=== PATIENT | female | born 1965 | race Caucasian/White ===

== ENCOUNTER 2018-06-11 05:51 | Day surgery (SDC) | payer OTHER, SELFPAY ==
[2018-06-11] VITALS (9 sets, daily range): BP systolic 103–133; BP diastolic 63–73; PULSE 53–69; RESP 16–18; TEMP 36.3–36.8; O2SAT 94–100; BMI 26.8
[2018-06-11] MEDS: Cefazolin 2 GM in 0.9% Normal Saline 100 ML IV (07:30)
--- NOTE | 2018-06-11 07:30 | RAD_ITS ---
STUDY: Fluoroscopy guidance and fluoroscopic spot image for pain management: REASON FOR EXAM: Female, 52 years old. Interstimulation therapy. TECHNIQUE: Fluoroscopy and fluoroscopic spot imaging obtained under direction, supervision and review of the position. Fluoroscopy time: 3.4 seconds. Dose: 0.63 mGy COMPARISON: None available. FINDINGS: Imaging partial view left pelvis shows a neurostimulator wire with inferior electrodes projecting over the left paracentral sacrum. Radiologist not present intraoperatively. Please see intraoperative report for details. IMPRESSION: Please see intraoperative report for details. Electronically Signed: Bryan Mattson, at 11:38 EDT Tel , Service support , RAD/Abdomen Single View
--- NOTE | 2018-06-11 08:04 | DCINST_ITS ---
Discharge Diet: Light diet - advance as tolerated Discharge Activity: Return to Normal Activity Suture Line Care: Avoid Pulling/Pushing, Avoid Pinching/Bending Allergies/Adverse Reactions: Allergies acetaminophen [From Vicodin] Adverse Reaction (Verified 06/04/18 09:59) Nausea azithromycin [From Zithromax Z-Mk] Adverse Reaction (Verified 06/04/18 09:59) Nausea hydrocodone bitartrate [From Vicodin] Adverse Reaction (Verified 06/04/18 09:59) Nausea Medications to take at Discharge Amlodipine [Norvasc] 5 mg PO DAILY 03/06/15 Losartan Potassium [Cozaar] 100 mg PO DAILY 03/06/15 Cholecalciferol (Vitamin D3) [Vitamin D3] 4,000 unit PO DAILY 06/04/18 Oxybutynin Chloride [Ditropan Xl] 5 mg PO DAILY 06/04/18 Cephalexin [Keflex] 500 mg PO Q8 #12 cap 06/11/18 Hydrocodone/Acetaminophen [Hurley 5-325 Tablet] 1 ea PO Q6H PRN PRN 5 Days #10 tab 06/11/18 The following prescriptions were given: Hydrocodone/Acetaminophen [Hurley 5-325 Tablet] 1 ea PO Q6H PRN PRN 5 Days #10 tab PRN Reason: Pain Cephalexin [Keflex] 500 mg PO Q8 #12 cap Primary Care Physician: Altaf Cardenas [Primary Care Provider] - Test Results: Test results from this visit will be discussed in further detail at your follow- up appointment, if applicable. Please Follow Up With: Rayo Ontiveros MD When: in 2 weeks, please call to make an appointment.
--- NOTE | 2018-06-11 08:04 | PCM.OPRPT ---
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 However this time the battery on the generator implant is wearing down and the fact that the implant is not as good so we plan to change her generator battery today. 52-year-old female was taken back to the operating room after smooth induction of anesthesia she was placed face down in a prone position, we came in with fluoroscopy and checked the lead and the lead appeared in good position she was also still getting good stimulation responses. Once we position the patient face down in the proper position on the table then the patient's right lower back and right gluteal area where the implant was located was prepped and draped in usual sterile fashion, through the prior incision I infiltrated the incision with lidocaine, I then made an incision in the skin and then used pickups and Metzenbaums to dissect down to the generator once I got to the generator open up the capsule around the generator and made sure not to injure the lead or the generator itself, no Bovie electrocautery was used. I then delivered the generator out of the incision used the screw provided in the kit and loosen the screw and remove the old generator off the lead I then cleaned the lead to make sure there was no blood or contamination and lead nature of the leads and was good, check lead and everything appeared intact and then I got the new generator advanced into the lead until all the blue markings are showing and then I tightened down on the bolt using the screw provided and after 2 clicks the lead was secured. Patient has had it was first taken back to the PACU in good condition I will see her back in a few weeks for checkup. We then checked the lead with the Snow[employer] rep and the impedances were low and appear to be functioning. Type of Anesthesia:: Local MAC - Admit VTE Documentation VTE Present on Admission: No VTE Mechan Device Prophylaxis: SCD's VTE Pharm Prophylaxis ordered?: No Reason prophylaxis not ordered:: Treatment Not Indicated
[2018-06-11] MEDS: Ondansetron ODT 4 MG Tablet PO ×2 (10:06→10:27)
== END 2018-06-11 11:25 | disposition home or self-care (01) ==
LOC: SDC 05:53
PROVIDERS: Family Provider Family Medicine; PCP Family Medicine; Visit Provider Urology
PROC: (CPT 64590; principal; 2018-06-11 07:15)
DX: N32.81 Overactive bladder (principal); N39.41 Urge incontinence; R35.0 Frequency of micturition; I10 Essential (primary) hypertension
CPT/HCPCS: 64590; 74018; 76000; J7120; C1767

== ENCOUNTER → 2018-08-19 18:33 | Outpatient (CLI) | payer OTHER, SELFPAY ==
--- NOTE | 2018-08-19 18:42 | RAD_ITS ---
STUDY: X-RAY - CERVICAL SPINE REASON FOR EXAM: Female, 52 years old. Pain TECHNIQUE: Three view(s) of the cervical spine were obtained. COMPARISON: None FINDINGS: Normal anterior atlantoaxial articulation. Normal odontoid process. Normal cervical lordosis. No significant abnormalities are seen in the vertebral bodies. There is fusion of the disc at C3-4. There is moderate disc space narrowing at C5-6 and C6-7. There is no prevertebral soft tissue swelling. The lung apices are unremarkable. RAD/Cerv Spine 2 or 3 Views IMPRESSION: There are moderate degenerative disc changes at C5-6 and C6-7. There is fusion of the disc at C3-4, likely congenital. Electronically Signed: Shannan Ospina MD at 18:32 EDT Tel Direct: [phone], Service support ,
== END ==
PROVIDERS: Family Provider Family Medicine; PCP Family Medicine; Visit Provider Anesthesiology Pain Medicine
DX: M54.2 Cervicalgia (principal)
CPT/HCPCS: 72040

== ENCOUNTER 2022-01-31 08:19 | Outpatient (CLI) | payer OTHER, SELFPAY ==
--- NOTE | 2022-01-31 08:24 | RAD_ITS ---
STUDY: X-RAY - ESOPHAGUS (BARIUM SWALLOW) WITH FLUOROSCOPY REASON FOR EXAM: Female, 56 years old. DYSPHAGIA for solids. History of prior esophageal dilatation. TECHNIQUE: 15 view(s) of the esophagus were obtained following swallowing of barium. FLUOROSCOPY TIME (if supplied): (39 seconds) minutes/seconds COMPARISON: None. FINDINGS: There is no demonstrated esophageal foreign body. There is no demonstrated stricture or mucosal abnormality. Normal gastroesophageal junction, without a demonstrated hiatal hernia. The patient ingested a 12 mm tablet of barium without any difficulty. Normal visualized aortic arch and descending thoracic aorta. Normal visualized pulmonary parenchyma. Normal visualized osseous structures of the thorax. RAD/Esophagus Dual Contrast IMPRESSION: Normal plain film x-ray examination (barium swallow) of the esophagus. Electronically Signed: Declan Jaeger MD at 8:44 EDT ,
== END 2022-01-31 23:59 | disposition home or self-care (01) ==
PROVIDERS: PCP Family Medicine; Referring Provider Internal Medicine Gastroenterology; Visit Provider Internal Medicine Gastroenterology
DX: R13.10 Dysphagia, unspecified (principal)
CPT/HCPCS: 74221

== ENCOUNTER → 2022-11-18 | Outpatient (CLI) | payer OTHER, SELFPAY ==
--- NOTE | 2022-11-18 16:03 | RAD_ITS ---
EXAM: XR ABDOMEN, 1 VIEW CLINICAL INDICATION: URGENCY OF URINATION TECHNIQUE: Frontal supine view of the abdomen/pelvis. This report was created using i[employer] report generation technology. COMPARISON: None. FINDINGS: LOWER THORAX: No acute pathology. GASTROINTESTINAL TRACT: Unremarkable. Non-obstructive. No bowel or stomach distention. ORGANS: Unremarkable as visualized. No organomegaly. No abnormal calcifications. BONES/JOINTS: No acute pathology. SOFT TISSUES: No acute pathology. TUBES, LINES AND DEVICES: There is a battery pack overlying the left iliac wing with a lead extending over the right sacrum. RAD/Abdomen Single View IMPRESSION: No acute findings. Electronically Signed: David Gastelum MD at 16:42 EST ,
== END | disposition home or self-care (01) ==
LOC: LAB 15:49 → RAD 15:54
PROVIDERS: PCP Family Medicine; Visit Provider Urology
DX: R39.15 Urgency of urination (principal)
CPT/HCPCS: 74018

== ENCOUNTER → 2022-11-19 | Outpatient (CLI) | payer OTHER, SELFPAY ==
--- NOTE | 2022-11-19 14:07 | ST.MBS ---
Modified Barium Swallow - Patient Information Study Date: 11/19/22 Study Time: 13:00 Direct Billable Minutes: 90 Total Minutes procedure & reportin Diagnosis: GERD (K21.9) Referring Physician: Garrison Gage Reason for Referral: Objectively assess swallow function, assess risk for aspiration, and determine recommendations for least restrictive diet textures and compensatory strategies to improve safety of swallow. Medical History: The patient is a 57-year-old female with PMH including GERD managed by pantoprazole who was referred for MBSS from network management specialist to rule out concern for silent aspiration. Pt coughing within minutes after any oral intake - liquid or solid. Pt reports history of 2 esophageal dilations, the most recent of which was December 2021. Pt feels the most recent dilation didn't work for long. Patient also reports esophageal manometry 10/10/2022 at [facility], which revealed decreased function of her lower esophageal sphincter. Pt's network management specialist feels her frequent coughing is not solely due to esophageal issues, and he feels she may have additional swallowing difficulty to be assessed by this study. Current Diet Ordered: Regular textures / Thin liquids Dentition: Natural Teeth Mental Status: WNL Respiratory Status: Oxygenating on Room Air - Penetration-Aspiration Scale Penetration-Aspiration Scale: OBJECTIVE ASSESSMENT OF SWALLOW FUNCTION (QUANTITATIVE ? PER TRIAL): PENETRATION / ASPIRATION SCALE (PASTRANA): 1 = does not enter airway 2 = enters airway/above vocal folds/ejected 3 = enters airway/above vocal folds/not ejected 4 = enters airway/contacts vocal folds/ejected 5 = enters airway/contacts vocal folds/not ejected 6 = enters airway/below vocal folds/ejected 7 = enters airway/below vocal folds/not ejected despite effort 8 = enters airway/below vocal folds/no effort VIDEOFLOROSCOPIC SCALE SCORE (PASTRANA): Grade I = aspiration of material that has penetrated into the laryngeal vestibule, intact cough reflex Grade II = aspiration < 10 % of the bolus, intact cough reflex Grade III = aspiration of < 10 % of the bolus, reduced cough reflex or aspiration of > 10 % of the bolus, intact cough reflex Grade IV = aspiration of > 10 % of the bolus, reduced cough reflex - Penetration-Aspiration Scale Score Thin Liquid via teaspoon Result: 1= does not enter airway Thin Liquid via teaspoon Trial 2 Result: 1= does not enter airway Thin Liquid via small single sip from cup Result: 1= does not enter airway Thin Liquid via sequential sips from cup Result: 1= does not enter airway [place] Thick Liquid via small single sip from cup Result: 1= does not enter airway Honey Thick Liquid via small single sip from cup Result: 1= does not enter airway Pudding via teaspoon with esophageal screen Result: 1= does not enter airway 1/2 Cookie Result: 1= does not enter airway Thin Liquid via single sip from straw Result: 1= does not enter airway - Oral Phase Labial Seal: No Labial Escape Tongue Control During Bolus Hold: Posterior escape of less than half of bolus Bolus Preparation/Mastication: Timely and efficient chewing and mashing Bolus Transport/Lingual Motion: Brisk tongue motion Oral Residue: Residue collection on oral structures - Pharyngeal Phase Initiation of Pharyngeal Swallow: Bolus head in pyriforms - thin liquid via straw Soft Palate Elevation: No bolus between soft palate and pharyngeal wall Laryngeal Elevation: Comp. Superior move thyroid cart w/comp. apprx arytenoid cart-epig pet Anterior Hyoid Excursion: Partial anterior movement Epiglottic Movement: Complete inversion Laryngeal Vestibule Closure at Height of Swallow: Complete; no air/contrast in laryngeal vestibule Pharyngeal Stripping Wave: Present - complete Pharyngoesophageal Segment Opening: Parital distension and partial duration; parital obstruction of flow Tongue Base Retraction: Trace column of contrast between tongue base & post. pharyngeal wall Pharyngeal Residue: Trace residue within or on pharyngeal structures - Esophageal Phase Esophageal Clearance: Esophageal retention w/ retrograde flow through pharyngoesophageal seg - Diagnosis/Impression Diagnosis: Esophageal phase dysphagia (R13.14) Impression: The patient has overall oropharyngeal swallow function WNL. She did present with premature posterior loss of thin liquids via straw to the pyriform sinuses prior to swallow onset; however, remainder of sips completed with good bolus control and timely swallow onset. Piecemeal deglutition of pudding and cookie trials. Trace pharyngeal residues after the swallow. No aspiration or laryngeal penetration observed during the study. Despite frequent coughing either delayed or immediately following trials, the airway and laryngeal vestibule remained clear of barium contrast. Pt verbalized she felt retention in the base of her throat/upper esophagus at the end of the study; however, pharynx appeared clear of barium contrast ? FELT HAT FLANGING OPERATOR suspects patient may be experiencing globus sensation. The esophageal phase is marked by trace esophageal retention of thin liquids with trace retrograde flow through the upper esophageal sphincter (UES). The patient also presented with esophageal retention of pudding trial, primarily in the upper and middle esophagus. Retention of honey thick liquid and sequential sips of thin liquids observed to have retrograde flow to the upper esophagus, remaining just below the UES. Retrograde flow of sequential sips of thin barium in the upper esophagus. Pudding contrast in the upper and middle esophagus viewed during esophageal screen of pudding by tsp. - Recommendations Diet: Regular Textures, Thin Liquids Compensatory Strategies: Small Bites - chew thoroughly, Small Sips, Slow Rate, Alternate bites/solids and sips/liquids, Sitting upright Recommend Repeat Modified Barium Swallow: No Need for Skilled Speech Therapy Services: No Recommended Referrals: GI Consult - continue to follow with Dr. Gage to manage deficits in esophageal clearance of various consistencies Education Completed: 1. Described result of evaluation. - Status Active ST Patient: Active - Contact Information [facility] Speech Therapy:: Jamia Grubbs M.A. [facility]FELT HAT FLANGING OPERATOR Speech-Language Pathologist [facility] [address] [place] [address] [email or web address] [phone] 11/19/22 14:27
== END | disposition home or self-care (01) ==
LOC: RAD 12:24
PROVIDERS: PCP Family Medicine; Visit Provider Internal Medicine Gastroenterology
DX: R05.9 Cough, unspecified (principal); K21.9 Gastro-esophageal reflux disease without esophagitis
CPT/HCPCS: 74230; 92611

== ENCOUNTER → 2023-05-12 | Outpatient (CLI) | payer OTHER, SELFPAY | END | disposition home or self-care (01) | PROVIDERS: PCP Family Medicine; Referring Provider Otolaryngology Otolaryngology/Facial Plastic Surgery; Visit Provider Otolaryngology Otolaryngology/Facial Plastic Surgery | DX: J34.89 Other specified disorders of nose and nasal sinuses (principal) | CPT/HCPCS: 87070; 87077; 87186; 87205 ==

== ENCOUNTER → 2024-07-15 | Outpatient (CLI) | payer OTHER, SELFPAY ==
[2024-07-15 10:49] LABS: Erythrocyte Sedimentation Rate 3 mm/hr (0-30)
[2024-07-15 10:52] LABS: Platelet Count 272 K/mm3 (150-450); RET-HE 38.8 pg (30-35); Reticulocyte Count 2.26 % (0.5-1.5)
[2024-07-15 11:23] LABS: CRP < 2.90 mg/L (0.0-3.0); Ferritin 46 ng/mL (8-252); Iron 104 ug/dL (50-170); Iron Binding Capacity,Total 375 ug/dL (250-450); LDH 238 U/L (84-246)
[2024-07-15 17:36] LABS: Vitamin B12 275 pg/mL (211-911)
[2024-07-19 15:08] LABS: Albumin 3.8 g/dL (2.9-4.4); Alpha-1-Globulins 0.3 g/dL (0.0-0.4); Alpha-2-Globulins 0.8 g/dL (0.4-1.0); Anti-Parietal Cell AB, QN 12.3 Units (0.0-20.0); Cytoplasmic Ab (C-ANCA) <1:20 titer (Neg:<1:20); Endomysial Antibody IgA Negative (Negative); Gamma Globulin 0.8 g/dL (0.4-1.8); Gastrin, Serum 94 pg/mL (0-115); Immunoglobulin A 254 mg/dL (87-352); Immunoglobulin G 706 mg/dL (586-1602); Immunoglobulin M 101 mg/dL (26-217); Intrinsic Factor Ab 1.1 AU/mL (0.0-1.1); Perinuclear Ab (P-ANCA) <1:20 titer (Neg:<1:20); t-Transglutaminase IgA <2 U/mL (0-3)
[2024-07-20 17:08] LABS: Anti-Centromere B Ab <0.2 AI (0.0-0.9); Anti-Chromatin <0.2 AI (0.0-0.9); Anti-Jo <0.2 AI (0.0-0.9); Anti-Scleroderma-70 AB <0.2 AI (0.0-0.9); Anti-dsDNA Ab <1 IU/mL (0-9); Beef <0.10 kU/L (Class 0); Chocolate <0.10 kU/L (Class 0); Codfish <0.10 kU/L (Class 0); Corn <0.10 kU/L (Class 0); Egg, Whole <0.10 kU/L (Class 0); Milk (Cow) <0.10 kU/L (Class 0); Mussels <0.10 kU/L (Class 0); Peanut <0.10 kU/L (Class 0); Pork <0.10 kU/L (Class 0); RNP Ab 0.2 AI (0.0-0.9); SJOGREN'S Anti-SS-A test < 0.2 AI (0.0-0.9); SJOGREN'S Anti-SS-B test < 0.2 AI (0.0-0.9); Salmon <0.10 kU/L (Class 0); Shrimp <0.10 kU/L (Class 0); Smith Ab <0.2 AI (0.0-0.9); Soybean <0.10 kU/L (Class 0); Tuna <0.10 kU/L (Class 0); Wheat <0.10 kU/L (Class 0)
== END | disposition home or self-care (01) ==
PROVIDERS: PCP Family Medicine; Referring Provider Internal Medicine Gastroenterology; Visit Provider Internal Medicine Gastroenterology
DX: R14.0 Abdominal distension (gaseous) (principal)
CPT/HCPCS: 36415; 82533; 82607; 82728; 82784; 82941; 83516; 83540; 83550; 83615; 84165; 84443; 85045; 85652; 86003; 86005; 86140; 86225; 86235; 86255; 86256; 86334; 86340

== ENCOUNTER 2024-07-20 08:43 | Day surgery (SDC) | payer OTHER, SELFPAY ==
[2024-07-20] VITALS (9 sets, daily range): BP systolic 110–134; BP diastolic 64–78; PULSE 54–69; RESP 16–20; TEMP 36.7–36.8; O2SAT 95–100; BMI 25.4
[2024-07-20] MEDS: Lactated Ringers 1,000 ML 15 ML IV (09:30)
--- NOTE | 2024-07-20 09:33 | PRE.ANES_ITS ---
ASA Classification* ASA Classification ASA Classification: 2 Assessment & Plan Anesthesia* Anesthesia Assessment Anesthesia Assessment: Discussed sedation and/or anesthesia options, risks, benefits, and alternatives with patient/parents/legal guardian/POA. Questions invited. The patient/parents/legal guardian/POA seems to understand and agrees to proceed with anesthesia plan. Reviewed the physical assessment, medical history, allergy history and patient home medications list prior to surgery/procedure/anesthetic and documented any changes. Performed airway and anesthesia risk assessments. Anesthesia Type Anesthesia Type: MAC Anesthesia Focused Assessment* Temperature: 98.2 F Pulse Rate: 61 Blood Pressure: 127/70 Respiratory Rate: 20 Pulse Ox: 97 Airway Assessment Mouth opens: >3 cm Mallampati Score: II Focused Labs Anesthesia Preop lab: CBC WBC 7.6 K/mm3 (4.4-11.0) 09/01/14 15:55 RBC 4.12 M/mm3 (4.2-5.4) L 09/01/14 15:55 Hgb 13.7 g/dl (12.0-15.0) 09/01/14 15:55 Hct 41.2 % (37-47) 09/01/14 15:55 Plt Count 232 K/mm3 (150-450) 09/01/14 15:55 CHEMISTRY TSH 1.750 uIU/mL (0.358-3.740) 07/15/24 10:25 COAG HCG, Quant < 1 mIU/mL (<9 non-preg) 09/01/14 15:55 Pre-Assessment Diagnosis/Proposed Procedure Planned Operative Procedure(s): AXONICS STAGE 1 AND STAGE 2 Anesthesia History Anesthesia History - social human services assistants: Anesthesia History - social human services assistants Hx Hospitalization Yes: 07/07/24 POMERENE FOR 07/14/24 14:58 CP RELATED TO ACID REFLUX Any Problems With Anesthesia No 07/14/24 14:58 Cholinesterase deficiency No 07/14/24 14:58 You/Your Family Experience No 07/14/24 14:58 fever (hyperthermia) with Relationship Recent Exposure to Contagious No 07/20/24 09:13 Disease Does patient have nerve No 07/14/24 14:58 stimulator Patient instructed to have device shut off --Does patient have Pacemaker No 07/20/24 09:13 or ICD? When Was Last Pacemaker Check QUESTION #4 FULL TEXT: You/Your Family Experience fever (hyperthermia) with Anesthesia Last Oral Intake Last Oral intake: Last Oral Intake NPO since 19:00 07/20/24 09:13 Meds taken in AM with sips of No 07/20/24 09:13 water? Meds patient instructed to take am of surgery PONV PONV - social human services assistants: PONV - social human services assistants Female Yes 07/14/24 14:58 HX of Motion Sickness Yes 07/14/24 14:58 HX of N/V After Surgery No 07/14/24 14:58 Non-Smoker Yes 07/14/24 14:58 Duration of Surgery greater No 07/14/24 14:58 than 60 minutes Number of Risk Factors 3 07/14/24 14:58 PONV Score Moderate Risk 07/14/24 14:58 Height & Weight Height & Weight: Anesthesia: Height & Weight Height 5 ft 2 in 07/20/24 09:13 Weight: 63 kg 07/20/24 09:13 Body Mass Index (BMI) 25.4 07/20/24 09:13 Respiratory Assessment Respiratory Assessment - social human services assistants: Respiratory Tract Infection Hx - social human services assistants Hx Respiratory Tract Infection No 07/14/24 14:58 STOP Sleep Apnea STOP Sleep Apnea - social human services assistants: STOP Sleep Apnea - social human services assistants Hx Hypertension Yes: CONTROLLED WITH MED 07/14/24 14:58 Hx Sleep Apnea No 07/14/24 14:58 CPAP No 06/04/18 10:01 BIPAP No 06/04/18 10:01 Do you snore loudly (louder No 07/14/24 14:58 than talking or can be heard Do you often feel tired/ No 07/14/24 14:58 fatigued/ sleepy during daytime? Has anyone observed you stop No 07/14/24 14:58 breathing during sleep? STOP Results Negative 07/14/24 14:58 QUESTION #5 FULL TEXT : Do you snore loudly (louder than talking or can be heard through closed doors)? Tobacco Use History Tobacco Use History - social human services assistants: Tobacco Use History - social human services assistants Tobacco Use Smoking Status Never smoker 07/14/24 14:58 Hx Tobacco Use No 07/14/24 14:58 Years Smoking Packs Smoked per Day Smoking Cessation Date was within the last 15 years Hx Smoking Cessation Date Hx Smoking Cessation Counseling Hematologic Medial History Hematologic Hx - social human services assistants: Hematologic Medical Hx - engineering documentation specialist Hx of Blood Transfusion No 07/14/24 14:58 Hx of Transfusion in last 3 No 07/14/24 14:58 Months Date of Last Transfusion (if within last 3 months) Ever experience any problems No 07/14/24 14:58 with transfusion(s)? Specify any problems Hx of Preganancy in last 3 N/A 07/14/24 14:58 Months Nurse Filling Out Transfusion NBUCHER 07/14/24 14:58 & Questions: Date: 07/14/24 07/14/24 14:58 Time: 15:00 07/14/24 14:58 Patient unable to answer at this time (ie. confused, unrespo /Reproduction History /Reproductive History - social human services assistants: /Reproductive Hx- social human services assistants Hx Now No 07/14/24 14:58 Gestational Age (in weeks): EDC: Hx Hx Para Hx Section SAB No 07/14/24 14:58 Active Medications Active Medications: Current Medications Generic Name Dose Route Start Last Admin Trade Name Freq PRN Reason Stop Dose Admin Cefazolin Sodium 2 gm/ Sodium 110 mls @ 150 mls/hr 07/20/24 10:55 Chloride IV 07/20/24 11:38 PREOP ONE Lactated Ringer's 1,000 mls @ 15 mls/hr 07/20/24 09:00 07/20/24 09:30 IV 15 mls/hr .Q48H VICTORINO Administration PFSH Medical History Wears glasses Alcohol use Arthritis Migraine headache Difficulty swallowing Non-smoker Presence of neurostimulator Amputated toe Thrush Trochanteric bursitis DJD (degenerative joint disease) HTN (hypertension) Dyshidrotic eczema Cervical radiculopathy Abnormal gallbladder ultrasound GERD (gastroesophageal reflux disease) Home Medications ?Medication ?Instructions ?Recorded ?Last Taken ?Type losartan 100 mg tablet 100 mg PO QHS 03/06/15 07/19/24 History meloxicam 15 mg tablet 15 mg PO QHS 06/30/24 07/19/24 History pantoprazole 40 mg tablet,delayed 40 mg PO BID 06/30/24 07/19/24 History release spironolactone 50 mg tablet 50 mg PO QHS 06/30/24 07/19/24 History oxybutynin chloride 5 mg 5 mg PO BID 07/14/24 07/19/24 History tablet,extended release 24 hr progesterone micronized 200 mg 200 mg PO QHS 07/14/24 07/19/24 History capsule dexlansoprazole 60 mg 60 mg PO QDAY #30 caps 07/15/24 Unknown Rx capsule,biphase delayed release (Dexilant) Allergy/AdvReac Type Severity Reaction Status Date / Time ketoprofen Allergy Intermediate Other Verified 07/20/24 09:10 sulfamethoxazole (From Allergy Intermediate Nausea/Vom/ Verified 07/20/24 09:10 Bactrim) Diarrhea trimethoprim (From Bactrim) Allergy Intermediate Nausea/Vom/ Verified 07/20/24 09:10 Diarrhea azithromycin (From Zithromax AdvReac Nausea Verified 07/20/24 09:10 Z-Mk) hydrocodone bitartrate (From AdvReac Nausea Verified 07/20/24 09:10 Vicodin) Surgical History History of foot surgery History of esophagogastroduodenoscopy (EGD) (~2018) History of colonoscopy (~2018) History of cholecystectomy (~01/2023) History of appendectomy Social History Smoking Status: Never smoker alcohol intake: current alcohol intake frequency: holidays/special occasions only Review of Systems (Anesthesia) ROS Narrative System reviewed and no additional complaints, except as documented.
--- NOTE | 2024-07-20 10:36 | PCM.HP.STD ---
[facility] - General General Date of Service: 07/20/24 Chief Complaint: Placement of a new InterStim device HPI Narrative BURT ORNELSA, is a 58 F who presents for placement of a brand-new stage I and stage II InterStim stem device, she had a new InterStim placed over 10 years ago and at this point the leads not working so when to place a new InterStim device and remove the old one. [facility] Medical History Wears glasses Alcohol use Arthritis Migraine headache Difficulty swallowing Non-smoker Presence of neurostimulator Amputated toe Thrush Trochanteric bursitis DJD (degenerative joint disease) HTN (hypertension) Dyshidrotic eczema Cervical radiculopathy Abnormal gallbladder ultrasound GERD (gastroesophageal reflux disease) Home Medications ?Medication ?Instructions ?Recorded ?Last Taken ?Type losartan 100 mg tablet 100 mg PO QHS 03/06/15 07/19/24 History meloxicam 15 mg tablet 15 mg PO QHS 06/30/24 07/19/24 History pantoprazole 40 mg tablet,delayed 40 mg PO BID 06/30/24 07/19/24 History release spironolactone 50 mg tablet 50 mg PO QHS 06/30/24 07/19/24 History oxybutynin chloride 5 mg 5 mg PO BID 07/14/24 07/19/24 History tablet,extended release 24 hr progesterone micronized 200 mg 200 mg PO QHS 07/14/24 07/19/24 History capsule dexlansoprazole 60 mg 60 mg PO QDAY #30 caps 07/15/24 Unknown Rx capsule,biphase delayed release (Dexilant) Allergy/AdvReac Type Severity Reaction Status Date / Time ketoprofen Allergy Intermediate Other Verified 07/20/24 09:10 sulfamethoxazole (From Allergy Intermediate Nausea/Vom/ Verified 07/20/24 09:10 Bactrim) Diarrhea trimethoprim (From Bactrim) Allergy Intermediate Nausea/Vom/ Verified 07/20/24 09:10 Diarrhea azithromycin (From Zithromax AdvReac Nausea Verified 07/20/24 09:10 Z-Mk) hydrocodone bitartrate (From AdvReac Nausea Verified 07/20/24 09:10 Vicodin) Surgical History History of foot surgery History of esophagogastroduodenoscopy (EGD) (~2018) History of colonoscopy (~2018) History of cholecystectomy (~01/2023) History of appendectomy Social History Smoking Status: Never smoker alcohol intake: current alcohol intake frequency: holidays/special occasions only Vital Signs Vital Signs Vital Signs: 07/20/24 09:13 07/20/24 09:13 07/20/24 09:33 Temperature 98.2 F 98.2 F Temperature Source Temporal Pulse Rate 61 61 Respiratory Rate 20 H 20 H Respiratory Pattern Normal Blood Pressure 127/70 H 127/70 H Blood Pressure Mean 89 Blood Pressure Source Monitor Blood Pressure Position Semi-Fowlers Blood Pressure Location Right Arm Pulse Ox 97 97 Oxygen Delivery Method Room Air Weight Weight: 63 kg Body Mass Index (BMI) 25.4
--- NOTE | 2024-07-20 10:38 | DCINST_ITS ---
Discharge Instructions Diet Discharge Diet: No restrictions, Light diet - advance as tolerated and Soft diet Activity Discharge Activity: Return to Normal Activity and [address] (after 24 hours) Dressing / Incision Suture Line Care: Avoid Pulling/Pushing and Avoid Pinching/Bending Cleanse incision/area with: Keep Dressing Clean & Dry Follow Up Care Please Follow Up With: Rayo Ontiveros MD When: 2 weeks. Test Results: Test results from this visit will be discussed in further detail at your follow- up appointment, if applicable. Discharge Plan Admission Primary Reason for Your Visit: new interstim therpy Attending Provider: Rayo Ontiveros Primary Care Provider: Altaf Cardenas Instructions Print Language: Slovak Discharge Orders/Prescriptions Prescriptions: New ibuprofen 600 mg tablet 600 mg PO Q6H PRN (Reason: fever or pain) Qty: 20 0RF cephalexin 500 mg capsule 500 mg PO TID Qty: 15 0RF Continued spironolactone 50 mg tablet 50 mg PO QHS meloxicam 15 mg tablet 15 mg PO QHS pantoprazole 40 mg tablet,delayed release (DR/EC) 40 mg PO BID dexlansoprazole [Dexilant] 60 mg capsule,biphase delayed releas 60 mg PO QDAY Qty: 30 1RF losartan 100 MG tablet 100 mg PO QHS oxybutynin chloride 5 mg tablet extended release 24hr 5 mg PO BID progesterone micronized 200 mg capsule 200 mg PO QHS Referrals / Follow Up: Rayo Ontiveros MD [Med Staff - Active Staff] - Altaf Cardenas MD [Primary Care Provider] - Disposition Disposition (needs filled in before D/C Order can be placed): Home, Self Care
[2024-07-20] MEDS: Cefazolin 2 GM in 0.9% Normal Saline (100mL Bag) 100 ML IV (11:09)
--- NOTE | 2024-07-20 11:10 | RAD_ITS ---
STUDY: X-RAY - PELVIS REASON FOR EXAM: Female, 58 years old. Stimulator placement. Intraprocedural documentations views. TECHNIQUE: 4 intraoperative digital documentation views of the pelvis COMPARISON: None. FINDINGS: 4 intraoperative digital documentation views show placement of sacral stimulator. RAD/Pelvis 1 or 2 Views IMPRESSION: Intraoperative digital documentation views. Electronically Signed: Min Harper MD at 12:42 EDT ,
[2024-07-20] MEDS: Lidocaine 1% (30 ml sdv) 30 ML Vial (12:00)
--- NOTE | 2024-07-20 12:18 | OP.PCM_ITS ---
Report of Operation Date of Procedure: 07/20/24 Pre-Operative Diagnosis: InterStim therapy, frequency urgency and overactive bl adder Post-Operative Diagnosis: The same Surgery/Procedure Performed:: Stage I new lead placed for InterStim therapy revision of pocket Description of Surgical Findings:: Patient was taken back to the operating room after smooth induction of anesthesia she was placed supine on the table we then put her in facedown and comfort position with sedation. Her lower back was then prepped and draped in usual sterile fashion for revision of InterStim therapy. She had InterStim therapy placed long time ago but the leads now not working anymore she had a new battery placed new generator placed only 18 months ago which is still good so plan today is to put in a new stage I lead and use the old generator so organ to do stage I implant and a revision of a pocket implant generator Patient was taken back to the operating room after positioning the patient made an incision over the old pocket dissected down to the generator freed up the generator freed up the lead the lead from the generator using the kit provided and then the old generator which is still good was taken off the table and cleaned. I then tunneled the lead back to the original insertion site and then very carefully removed the old lead by freeing up the tines and freeing up the lead. We then placed a new stage I lead using the guide needle when and going to the S3 foramen we then checked for placement she had good response with good nieves and good toe response and then we put a stylette through the lead and then we put the sheath through this and then through this sheath we introduced the brand-new InterStim lead. We placed the lead down and there we checked 0, 1, 2, 3 and we only had response on 2 and 3 so then we reposition the lead and then we got response on 0,1,2 and 3 after repositioning the lead. Then once the lead was repositioned then the lead was then tunneled back to the original pocket and then we brought back the generator that had been already in there that was still good and we attached the old still good functioning generator to the lead and then we checked for impedance there was no impedance and good conduction and then we closed the generator pocket and we closed the insertion sites with subcuticular stitches. Successful revision of the pocket and successful placement stage I with good responses in all 4 ends of the leads. Patient's anesthetic was reversed and she was taken back to PACU in good condition CPT 28193 -Stage I 91895 - revision of pocket. Surgeon: Rayo Ontiveros Type of Anesthesia: General Admit VTE Documentation VTE Present on Admission: No VTE Mechan Device Prophylaxis: SCD's VTE Pharm Prophylaxis ordered?: No
--- NOTE | 2024-07-20 12:25 | PCM.POST.ANE ---
Anesthesia: Postop Eval I Current Vital Signs Temperature: 98.1 F Pulse Rate: 62 Blood Pressure: 116/65 Respiratory Rate: 16 Pulse Ox: 100 Oxygen Delivery Method: Room Air Assessment Airway patent: Yes Spontaneous unlabored respirations: Yes Mental status: Awake and Calm nausea: No Vomiting: No Anesthesia Complication: No Fluid Hydration Crystalloid volume administer (ml): 800 Total IV fluid infused: 800 Progress Note Anesthesia document: Postop Eval 1 completed: Yes
--- NOTE | 2024-07-20 13:05 | POSTOPAN2_ITS ---
Anesthesia Postop Eval I Sum Postop Eval Completion status Anesthesia document: Postop Eval 1 completed: Yes Anesthesia Postop Eval I Summary Anesthesia Postop Eval I Summary: Anesthesia Postop Eval I: Assessment Summary Airway patent Yes 07/20/24 12:25 DIRECTORY [email or web address] Spontaneous unlabored Yes 07/20/24 12:25 DIRECTORY [email or web address] respirations Mental status Awake,Calm 07/20/24 12:25 DIRECTORY [email or web address] nausea No 07/20/24 12:25 DIRECTORY CLERK.[email or web address] Vomiting No 07/20/24 12:25 DIRECTORY CLERK.[email or web address] Anesthesia Postop Eval I: Fluid Summary Crystalloid volume administer 800 07/20/24 12:25 DIRECTORY [email or web address] (ml) Colloids volume administered ( ml) Blood Product volume administered (ml) Total IV fluid infused 800 07/20/24 12:25 DIRECTORY CLERK.[email or web address] Anesthesia Postop Eval I: Summary Notes Anesthesia Complication No 07/20/24 12:25 DIRECTORY CLERK.[email or web address] Anesthesia Complication Comment: Post-operative progress note Anesthesia: Postop Eval II Evaluation Mental status: Awake Pain Level: 0 nausea: No Vomiting: No
--- NOTE | 2024-07-20 13:05 | PCM.POSTANE2 ---
Anesthesia Postop Eval I Sum Postop Eval Completion status Anesthesia document: Postop Eval 1 completed: Yes Anesthesia Postop Eval I Summary Anesthesia Postop Eval I Summary: Anesthesia Postop Eval I: Assessment Summary Airway patent Yes 07/20/24 12:25 REFUELING [email or web address] Spontaneous unlabored Yes 07/20/24 12:25 REFUELING [email or web address] respirations Mental status Awake,Calm 07/20/24 12:25 REFUELING RAMPMAN.[email or web address] nausea No 07/20/24 12:25 REFUELING RAMPMAN.[email or web address] Vomiting No 07/20/24 12:25 REFUELING RAMPMAN.[email or web address] Anesthesia Postop Eval I: Fluid Summary Crystalloid volume administer 800 07/20/24 12:25 REFUELING [email or web address] (ml) Colloids volume administered ( ml) Blood Product volume administered (ml) Total IV fluid infused 800 07/20/24 12:25 REFUELING [email or web address] Anesthesia Postop Eval I: Summary Notes Anesthesia Complication No 07/20/24 12:25 REFUELING [email or web address] Anesthesia Complication Comment: Post-operative progress note Anesthesia: Postop Eval II Evaluation Mental status: Awake Pain Level: 0 nausea: No Vomiting: No
== END 2024-07-20 14:01 | disposition home or self-care (01) ==
LOC: SDC 08:43 → AC 08:44
PROVIDERS: PCP Family Medicine; Referring Provider Urology; Visit Provider Urology
PROC: (CPT 64561; principal; 2024-07-20 10:45)
DX: Z45.42 Encounter for adjustment and management of neurostimulator (principal); I10 Essential (primary) hypertension; N32.81 Overactive bladder; R35.0 Frequency of micturition; R39.15 Urgency of urination; Z90.49 Acquired absence of other specified parts of digestive tract; K21.9 Gastro-esophageal reflux disease without esophagitis
CPT/HCPCS: 64561; 64595; 72170; 76000; C1778; J7120; J2405

== ENCOUNTER 2024-08-12 10:38 | Day surgery (SDC) | payer OTHER, SELFPAY ==
[2024-08-12] VITALS (10 sets, daily range): BP systolic 104–128; BP diastolic 60–87; PULSE 59–104; RESP 12–20; TEMP 36.2–36.4; O2SAT 96–100; BMI 25.2
--- NOTE | 2024-08-12 10:50 | PRE.ANES_ITS ---
ASA Classification* ASA Classification ASA Classification: 2 Assessment & Plan Anesthesia* Anesthesia Assessment Anesthesia Assessment: Discussed sedation and/or anesthesia options, risks, benefits, and alternatives with patient/parents/legal guardian/POA. Questions invited. The patient/parents/legal guardian/POA seems to understand and agrees to proceed with anesthesia plan. Reviewed the physical assessment, medical history, allergy history and patient home medications list prior to surgery/procedure/anesthetic and documented any changes. Performed airway and anesthesia risk assessments. Anesthesia Type Anesthesia Type: MAC (see written pre anesthesia record for full assessment) Anesthesia Focused Assessment* Airway Assessment Mouth opens: >3 cm Mallampati Score: II Focused Labs Anesthesia Preop lab: CBC WBC 7.6 K/mm3 (4.4-11.0) 09/01/14 15:55 RBC 4.12 M/mm3 (4.2-5.4) L 09/01/14 15:55 Hgb 13.7 g/dl (12.0-15.0) 09/01/14 15:55 Hct 41.2 % (37-47) 09/01/14 15:55 Plt Count 232 K/mm3 (150-450) 09/01/14 15:55 CHEMISTRY TSH 1.750 uIU/mL (0.358-3.740) 07/15/24 10:25 COAG HCG, Quant < 1 mIU/mL (<9 non-preg) 09/01/14 15:55 Pre-Assessment Diagnosis/Proposed Procedure Planned Operative Procedure(s): EGD Anesthesia History Anesthesia History - marketing support coordinator: Anesthesia History - marketing support coordinator Hx Hospitalization Yes: 07/07/24 [facility] FOR 08/01/24 09:44 CP RELATED TO ACID REFLUX Any Problems With Anesthesia No 08/01/24 09:44 Cholinesterase deficiency No 08/01/24 09:44 You/Your Family Experience No 08/01/24 09:44 fever (hyperthermia) with Relationship Recent Exposure to Contagious No 07/20/24 09:13 Disease Does patient have nerve No 08/01/24 09:44 stimulator Patient instructed to have device shut off --Does patient have Pacemaker or ICD? When Was Last Pacemaker Check QUESTION #4 FULL TEXT: You/Your Family Experience fever (hyperthermia) with Anesthesia Last Oral Intake Last Oral intake: Last Oral Intake NPO since Meds taken in AM with sips of water? Meds patient instructed to take am of surgery PONV PONV - marketing support coordinator: PONV - marketing support coordinator Female Yes 08/01/24 09:44 HX of Motion Sickness Yes 08/01/24 09:44 HX of N/V After Surgery No 08/01/24 09:44 Non-Smoker Yes 08/01/24 09:44 Duration of Surgery greater Yes 08/01/24 09:44 than 60 minutes Number of Risk Factors 4 08/01/24 09:44 PONV Score Severe Risk 08/01/24 09:44 Height & Weight Height & Weight: Anesthesia: Height & Weight Height 5 ft 2 in 07/20/24 09:13 Respiratory Assessment Respiratory Assessment - marketing support coordinator: Respiratory Tract Infection Hx - marketing support coordinator Hx Respiratory Tract Infection No 08/01/24 09:44 STOP Sleep Apnea STOP Sleep Apnea - marketing support coordinator: STOP Sleep Apnea - marketing support coordinator Hx Hypertension Yes: CONTROLLED WITH MED 08/01/24 09:44 Hx Sleep Apnea No 08/01/24 09:44 CPAP No 08/01/24 09:44 BIPAP No 08/01/24 09:44 Do you snore loudly (louder No 08/01/24 09:44 than talking or can be heard Do you often feel tired/ No 08/01/24 09:44 fatigued/ sleepy during daytime? Has anyone observed you stop No 08/01/24 09:44 breathing during sleep? STOP Results Negative 08/01/24 09:44 QUESTION #5 FULL TEXT : Do you snore loudly (louder than talking or can be heard through closed doors)? Tobacco Use History Tobacco Use History - marketing support coordinator: Tobacco Use History - marketing support coordinator Tobacco Use Smoking Status Never smoker 08/01/24 09:44 Hx Tobacco Use No 08/01/24 09:44 Years Smoking Packs Smoked per Day Smoking Cessation Date was within the last 15 years Hx Smoking Cessation Date Hx Smoking Cessation Counseling Hematologic Medial History Hematologic Hx - marketing support coordinator: Hematologic Medical Hx - financial dealers Hx of Blood Transfusion No 08/01/24 09:44 Hx of Transfusion in last 3 No 08/01/24 09:44 Months Date of Last Transfusion (if within last 3 months) Ever experience any problems No 08/01/24 09:44 with transfusion(s)? Specify any problems Hx of Preganancy in last 3 No 08/01/24 09:44 Months Nurse Filling Out Transfusion VCHRISTIN 08/01/24 09:44 & Questions: Date: 08/01/24 08/01/24 09:44 Time: 09:45 08/01/24 09:44 Patient unable to answer at this time (ie. confused, unrespo /Reproduction History /Reproductive History - marketing support coordinator: /Reproductive Hx- marketing support coordinator Hx Now Gestational Age (in weeks): EDC: Hx Hx Para Hx Section SAB No 08/01/24 09:44 [facility] Medical History Gastric reflux History of echocardiogram History of stress test Chest pain Wears glasses Alcohol use Arthritis Migraine headache Difficulty swallowing Non-smoker Presence of neurostimulator Amputated toe Thrush Trochanteric bursitis DJD (degenerative joint disease) HTN (hypertension) Dyshidrotic eczema Cervical radiculopathy Abnormal gallbladder ultrasound GERD (gastroesophageal reflux disease) Home Medications ?Medication ?Instructions ?Recorded ?Last Taken ?Type losartan 100 mg tablet 100 mg PO QHS 03/06/15 07/19/24 History meloxicam 15 mg tablet 15 mg PO QHS 06/30/24 07/19/24 History spironolactone 50 mg tablet 50 mg PO QHS 06/30/24 07/19/24 History oxybutynin chloride 5 mg 5 mg PO BID 07/14/24 07/19/24 History tablet,extended release 24 hr progesterone micronized 200 mg 200 mg PO QHS 07/14/24 07/19/24 History capsule ibuprofen 600 mg tablet 600 mg PO Q6H PRN fever or pain 07/20/24 Unknown Rx #20 tabs omeprazole 40 mg capsule,delayed 40 mg PO BID #60 caps 07/29/24 07/28/24 Rx release Allergy/AdvReac Type Severity Reaction Status Date / Time ketoprofen Allergy Intermediate Other Verified 08/01/24 09:36 sulfamethoxazole (From Allergy Intermediate Nausea/Vom/ Verified 08/01/24 09:36 Bactrim) Diarrhea trimethoprim (From Bactrim) Allergy Intermediate Nausea/Vom/ Verified 08/01/24 09:36 Diarrhea azithromycin (From Zithromax AdvReac Nausea Verified 08/01/24 09:36 Z-Mk) hydrocodone bitartrate (From AdvReac Nausea Verified 08/01/24 09:36 Vicodin) Surgical History Hx of surgical procedure History of foot surgery History of esophagogastroduodenoscopy (EGD) (~2018) History of colonoscopy (~2018) History of cholecystectomy (~01/2023) History of appendectomy Social History Smoking Status: Never smoker alcohol intake: current alcohol intake frequency: holidays/special occasions only Review of Systems (Anesthesia) ROS Narrative System reviewed and no additional complaints, except as documented.
--- NOTE | 2024-08-12 12:00 | EGD_PTH ---
PATIENT: BURT ORNELAS LOC: [facility] U#:[id number] AGE/SX: 58/F ROOM: RE08/12/[address]: Dr. Nikita Elias DO : 1965 BED: DIS: 08/12/2024 SPEC #: [id number] RECD: 08/12/24 16:48 STATUS: DARLENE RETrice #: [id number] CARLOTA: 08/12/24 12:[address]: Nikita Elias DEPT: SURGICAL PATHOLOGY RECD BY: Bethany Silverio ENTERED: 08/15/24 08:19 SP TYPE: EGD BIOPSY HELGA DR: Dr. Altaf Cardenas MD Tissues: Esophagus, NOS Procedures: Special Stain Group I Surgery Specimen Level IV Alcian Blue/PAS (control) HEADER OPERATION: EGD, PH probe PRE-OP DIAGNOSIS: GERD, abdominal pain, bloating TISSUE SUBMITTED: Distal esophagus biopsy MICROSCOPIC DIAGNOSIS Distal esophagus, biopsy: Fragments of gastroesophageal mucosa with moderate chronic inflammation. Intestinal metaplasia (goblet cell metaplasia) not identified. See comment. 08/16/2024 COMMENT Alcian blue/PAS stain with matched control is used in the evaluation of the specimen. MICROSCOPIC DESCRIPTION Slides are reviewed. GROSS DESCRIPTION Received in fixative is one container labeled with the patient's name and designated Distal esophagus biopsy. The specimen consists of multiple irregular fragments of light greer soft tissue that in aggregate measure 0.9 x 0.4 x 0.1 cm. The specimen is totally submitted in one cassette. 08/15/2024 TC:3 CPT:59611,58439
--- NOTE | 2024-08-12 12:25 | HP.PCM_ITS ---
History and Physical Date of Admission: 08/12/24 BURT ORNELAS, is a 58 F who presents to the office today for initial consult. *[facility] established 07.15.24 pt reports that in mid-May she was told she has diverticulitis and GERD, she was prescribed cipro and flagyl, reports these were ineffective and gave her thrush, then she was given carafate and this gave her chest pain. She was referred to [facility] for scopes. Pt reports that increasing her pantoprazole to 40mg BID has been ineffective. On Thursday of last week pt when to another facilities ER for chest pain and was told that she is having increased bile due to having her gallbladder removed last year. She has been having intermittent crampy abdominal pain associated with bloating. She has been on a bland diet for 2 months without any improvement. She is also been on Carafate therapy without any improvement. 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 She had a barium esophagram which showed lax lower esophageal sphincter without any complete narrowing. She was placed on the Carafate because she was told that she had a lot of bile induced reflux secondary to having her gallbladder taken out. Her weight has been stable. She has no fevers. She denies any chest pain or shortness of breath at this time. She has not found any relief from increasing the pantoprazole to 40 mg p.o. twice daily. ROS Const Constitutional: Positive for fatigue and weight change (weight loss); No fever(s) ENT ENT: Positive for difficulty swallowing Gastro GI: Positive for abdominal pain, bloating, constipation, heartburn, difficulty swallowing, excessive flatus and nausea/dyspepsia; No belching, change in bowel habits, change in stool character, coffee ground emesis, cramping, diarrhea, feeling full early, incontinent of stools, Vomiting blood/hematemesis, Blood in stool, loose stools, Black,tarry stools, pain with swallowing, vomiting or other Musc Musculoskeletal: Positive for muscle cramps and Arthritis; No joint pain Skin Skin: No yellowing of the eye or itchy eyes Psych Psychiatric: No anxiety and No depression Endo Endocrine: Positive for fatigue and weight change (weight loss) Aller/Imm Allergy/Immunologic: No itchy eyes Sharif/Lymp Hematologic/Lymphatic: No easy bleeding or easy bruising Exam Const General: cooperative and comfortable Nutritional Appearance: average body habitus and well nourished [facility] Head: normal to inspection Ears: hearing grossly normal bilaterally Nose: external nose normal Face and sinus: normal facial exam Mouth: oral mucosae normal Throat: posterior oropharynx normal Eyes General: appearance normal, both eyes and all related structures Neck Neck: normal visual inspection Chest Chest palpation & inspection: normal inspection of the chest and normal palpation of entire chest wall Resp Effort & Inspection: normal respiratory effort Auscultation: Bilateral: Clear to Auscultation Cardio Palpation: normal PMI Rate: regular rate Rhythm: regular rhythm GI Inspection: normal to inspection Auscultation: normal bowel sounds Percussion: normal to percussion Palpation: no hepatosplenomegaly Skin General: no rashes or lesions noted Neuro General: patient alert Extrem General: normal to inspection Psych Affect: normal affect Assessment and Plan Assessment and Plan (1) Bloating: Status: Acute (2) Abdominal pain: Status: Acute (3) GERD (gastroesophageal reflux disease): Status: Acute Plan: Very pleasant 58-year-old with past medical history of gastroesophageal reflux disease refractory to PPI therapy who has been having worsening bloating, nausea despite conservative measures. She will undergo EGD to evaluate upper GI tract with Mon placement. Will also get a gastric emptying study and a HIDA scan to look for signs of duodenal gastric reflux and delayed gastric emptying. She will also get biochemical workup for autoimmune gastritis, celiac disease and other autoimmune diseases. Orders: Orders Iron Today R14.0 - Abdominal distension (gaseous) Retic Panel Count Today R14.0 - Abdominal distension (gaseous) LONG + Protein Elect, Serum Today R14.0 - Abdominal distension (gaseous) Iron Binding Capacity,Total Today R14.0 - Abdominal distension (gaseous) ANCA Today R14.0 - Abdominal distension (gaseous) Celiac Disease Profile Today R14.0 - Abdominal distension (gaseous) CRP Today R14.0 - Abdominal distension (gaseous) Erythrocyte Sed Rate Today R14.0 - Abdominal distension (gaseous) LDH Today R14.0 - Abdominal distension (gaseous) Ferritin Today R14.0 - Abdominal distension (gaseous) Gastrin, Serum Today R14.0 - Abdominal distension (gaseous) Thyroid Stim Hormone (TSH) Today R14.0 - Abdominal distension (gaseous) Vitamin B12 Today R14.0 - Abdominal distension (gaseous) Anti-Parietal Cell AB, QN Today R14.0 - Abdominal distension (gaseous) Intrinsic Factor Ab Today R14.0 - Abdominal distension (gaseous) Allergen, Food Profile 14 Today R14.0 - Abdominal distension (gaseous) KAMILAH Comprehensive Panel Today R14.0 - Abdominal distension (gaseous) Gastric Emptying Study Today R14.0 - Abdominal distension (gaseous) Hepatobilliary Imaging Today R14.0 - Abdominal distension (gaseous) CORTISOL SERUM Today R14.0 - Abdominal distension (gaseous) Medications: New dexlansoprazole (Dexilant) 60 mg PO QDAY 30 caps 1RF I have examined the patient and the H&P has been reviewed. There are no clinical changes since date of exam.
--- NOTE | 2024-08-12 12:55 | PCM.POST.ANE ---
Anesthesia: Postop Eval I Current Vital Signs Temperature: 97.6 F Pulse Rate: 104 Blood Pressure: 111/75 Respiratory Rate: 20 Pulse Ox: 97 Oxygen Delivery Method: Room Air Assessment Airway patent: Yes Spontaneous unlabored respirations: Yes Mental status: Awake nausea: No Vomiting: No Anesthesia Complication: No Fluid Hydration Crystalloid volume administer (ml): 10 Total IV fluid infused: 10 Progress Note Anesthesia document: Postop Eval 1 completed: Yes
--- NOTE | 2024-08-12 12:59 | OP.CCLET_ITS ---
08/12/2024 Altaf Cardenas Re : Upper GI endoscopy procedure for Naye Cardenas This procedure was performed on Monday, August 12, 2024. My impressions and recommendations are as follows: Impressions : - Normal esophagus. - Z-line irregular, 36 cm from the incisors. Biopsied. - Normal stomach. - No gross lesions in the first portion of the duodenum. - The ALTAMIRANO pH capsule was positioned 36 cm from the incisors, which was 6 cm proximal to the GE junction. Recommendations : - Discharge patient to home. - Resume previous diet. - Continue present medications. - Await pathology results. My findings are described in the full procedure note, which is enclosed. If I can be of further assistance, please feel free to contact me at . Sincerely, Nikita Friend, 08/12/2024 12:59:11 PM This report has been signed electronically.
--- NOTE | 2024-08-12 12:59 | OP.EGD_ITS ---
Patient Name: Naye Gomez Procedure Date: 08/12/2024 12:28 PM Date of : 1965 Age: 58 Procedure: Upper GI endoscopy Indications: Heartburn, Suspected esophageal reflux Providers: Nikita Elias DO Referring MD: Altaf Cardenas Medicines: Monitored Anesthesia Care Patient Profile: This is a 58 year old female. Refer to note in patient chart for documentation of history and physical. Patient has symptoms of chronic chest pain and chronic heartburn. Complications: No immediate complications. Procedure: Pre-Anesthesia Assessment: - Prior to the procedure, a History and Physical was performed, and patient medications and allergies were reviewed. The patient is competent. The risks and benefits of the procedure and the sedation options and risks were discussed with the patient. All questions were answered and informed consent was obtained. Patient identification and proposed procedure were verified by the physician in the pre-procedure area. Mental Status Examination: alert and oriented. Airway Examination: normal oropharyngeal airway and neck mobility. Respiratory Examination: clear to auscultation. CV Examination: normal. Prophylactic Antibiotics: The patient does not require prophylactic antibiotics. Prior Anticoagulants: The patient has taken no anticoagulant or antiplatelet agents except for NSAID medication. ASA Grade Assessment: II - A patient with mild systemic disease. After reviewing the risks and benefits, the patient was deemed in satisfactory condition to undergo the procedure. The anesthesia plan was to use monitored anesthesia care (MAC). Immediately prior to administration of medications, the patient was re-assessed for adequacy to receive sedatives. The heart rate, respiratory rate, oxygen saturations, blood pressure, adequacy of pulmonary ventilation, and response to care were monitored throughout the procedure. The physical status of the patient was re-assessed after the procedure. After obtaining informed consent, the endoscope was passed under direct vision. Throughout the procedure, the patient's blood pressure, pulse, and oxygen saturations were monitored continuously. The Endoscope was introduced through the mouth, and advanced to the second part of duodenum. The upper GI endoscopy was accomplished without difficulty. The patient tolerated the procedure well. Scope In: 12:40:45 PM Scope Out: 12:48:47 PM Total Procedure Duration Time 0 hours 8 minutes 2 seconds Findings: The examined esophagus was normal. The Z-line was irregular and was found 36 cm from the incisors. Biopsies were taken with a cold forceps for histology. Verification of patient identification for the specimen was done. Estimated blood loss was minimal. The ALTAMIRANO capsule with delivery system was introduced through the mouth and advanced into the esophagus, such that the ALTAMIRANO pH capsule was positioned 36 cm from the incisors, which was 6 cm proximal to the GE junction. Suction was applied to the well of the ALTAMIRANO pH capsule to suck in the adjacent mucosa of the esophagus using the external vacuum pump set at a minimum vacuum pressure of 550 mmHg for 30 seconds. The ALTAMIRANO pH capsule was then deployed by depressing the plunger on top of the handle to advance the locking pin into the mucosa, thereby attaching the capsule to the esophagus. The plunger was then rotated a quarter turn clockwise to release the capsule from the delivery system. The delivery system was then withdrawn. Endoscopy was utilized for probe placement and diagnostic evaluation. The entire examined stomach was normal. No gross lesions were noted in the first portion of the duodenum. Impression: - Normal esophagus. - Z-line irregular, 36 cm from the incisors. Biopsied. - Normal stomach. - No gross lesions in the first portion of the duodenum. - The ALTAMIRANO pH capsule was positioned 36 cm from the incisors, which was 6 cm proximal to the GE junction. Recommendation: - Discharge patient to home. - Resume previous diet. - Continue present medications. - Await pathology results. Procedure Code(s): --- Professional --- 49048, Esophagogastroduodenoscopy, flexible, transoral; with biopsy, single or multiple CPT copyright 2021 [employer]. All rights reserved. The codes documented in this report are preliminary and upon director staffing review may be revised to meet current compliance requirements. Nikita Elias DO 08/12/2024 12:59:11 PM This report has been signed electronically. Number of Addenda: 0 Note Initiated On: 08/12/2024 12:28 PM
--- NOTE | 2024-08-12 13:52 | POSTOPAN2_ITS ---
Anesthesia Postop Eval I Sum Postop Eval Completion status Anesthesia document: Postop Eval 1 completed: Yes Anesthesia Postop Eval I Summary Anesthesia Postop Eval I Summary: Anesthesia Postop Eval I: Assessment Summary Airway patent Yes 08/12/24 12:56 BUSINESS DEVELOPMENT REPRESENTATIVE.[email or web address] Spontaneous unlabored Yes 08/12/24 12:56 BUSINESS DEVELOPMENT REPRESENTATIVE.JDEF respirations Mental status Awake 08/12/24 12:56 BUSINESS DEVELOPMENT REPRESENTATIVE.JDEF nausea No 08/12/24 12:56 BUSINESS DEVELOPMENT REPRESENTATIVE.JDEF Vomiting No 08/12/24 12:56 BUSINESS DEVELOPMENT REPRESENTATIVE.JDEF Anesthesia Postop Eval I: Fluid Summary Crystalloid volume administer 10 08/12/24 12:56 BUSINESS DEVELOPMENT REPRESENTATIVE.JDEF (ml) Colloids volume administered ( ml) Blood Product volume administered (ml) Total IV fluid infused 10 08/12/24 12:56 BUSINESS DEVELOPMENT REPRESENTATIVE.JDEF Anesthesia Postop Eval I: Summary Notes Anesthesia Complication No 08/12/24 12:56 BUSINESS DEVELOPMENT REPRESENTATIVE.JDEF Anesthesia Complication Comment: Post-operative progress note Anesthesia: Postop Eval II Evaluation Mental status: Awake Pain Level: 0 nausea: No Vomiting: No
--- NOTE | 2024-08-12 13:52 | PCM.POSTANE2 ---
Anesthesia Postop Eval I Sum Postop Eval Completion status Anesthesia document: Postop Eval 1 completed: Yes Anesthesia Postop Eval I Summary Anesthesia Postop Eval I Summary: Anesthesia Postop Eval I: Assessment Summary Airway patent Yes 08/12/24 12:56 CONFIGURATION [email or web address] Spontaneous unlabored Yes 08/12/24 12:56 CONFIGURATION MANAGER.JDEF respirations Mental status Awake 08/12/24 12:56 CONFIGURATION MANAGER.JDEF nausea No 08/12/24 12:56 CONFIGURATION MANAGER.JDEF Vomiting No 08/12/24 12:56 CONFIGURATION MANAGER.[email or web address] Anesthesia Postop Eval I: Fluid Summary Crystalloid volume administer 10 08/12/24 12:56 CONFIGURATION MANAGER.JDEF (ml) Colloids volume administered ( ml) Blood Product volume administered (ml) Total IV fluid infused 10 08/12/24 12:56 CONFIGURATION MANAGER.JDEF Anesthesia Postop Eval I: Summary Notes Anesthesia Complication No 08/12/24 12:56 CONFIGURATION MANAGER.JDEF Anesthesia Complication Comment: Post-operative progress note Anesthesia: Postop Eval II Evaluation Mental status: Awake Pain Level: 0 nausea: No Vomiting: No
--- NOTE | 2024-08-15 11:04 | SUR.PHASEII ---
called pt back and updated her on the name of the medication that the pt received for pain in pacu- dilaudid- this added to her allergy list
== END 2024-08-12 14:28 | disposition home or self-care (01) ==
LOC: EN 10:38 → AC 10:40
PROVIDERS: PCP Family Medicine; Referring Provider Family Medicine; Visit Provider Internal Medicine Gastroenterology
PROC: 0DJ08ZZ Inspection of Upper Intestinal Tract, Via Natural or Artificial Opening Endoscopic (ICD-10-PCS; CPT 43235; principal; 2024-08-12 11:55)
DX: R10.9 Unspecified abdominal pain (principal); K21.9 Gastro-esophageal reflux disease without esophagitis; R14.0 Abdominal distension (gaseous); Z79.899 Other long term (current) drug therapy; K22.89 Other specified disease of esophagus
CPT/HCPCS: 43239; 88305; 88312; A4216; J2405

== ENCOUNTER → 2024-08-23 | Outpatient (CLI) | payer OTHER, SELFPAY ==
--- NOTE | 2024-08-23 11:43 | NM_ITS ---
CLINICAL: 58-year-old female with history of abdominal bloating. SEMI-SOLID PHASE 99m Tc SULFUR COLLOID GASTRIC EMPTYING STUDY COMPARISON: None available FINDINGS: The patient was administered 1.1 mCi of 99m Tc sulfur colloid mixed with oatmeal and consumed per os. Image acquisitions in the anterior-posterior projections were obtained for 60 minutes. There is prompt visualization of the stomach. There is no gastroesophageal reflux identified. The T ? raw data emptying was calculated to be 42.59 minutes, (Normal: 12-56 minutes). NM/Gastric Emptying Study IMPRESSION: 1. NORMAL 99m Tc sulfur colloid semi-solid phase (oatmeal) gastric emptying imaging examination. A. There is normal and preserved semi-solid phase gastric emptying compared to normal controls. (Jose A et al, J Nucl Med Tech 38: 186, 2010). Electronically Signed: Pavan Marquez DO at 23:53 EDT ,
== END | disposition home or self-care (01) ==
LOC: NM 11:43
PROVIDERS: PCP Family Medicine; Referring Provider Internal Medicine Gastroenterology; Visit Provider Internal Medicine Gastroenterology
DX: R14.0 Abdominal distension (gaseous) (principal)
CPT/HCPCS: 78264; A9541

== ENCOUNTER → 2024-08-25 | Outpatient (CLI) | payer OTHER, SELFPAY ==
--- NOTE | 2024-08-25 09:45 | NM_ITS ---
CLINICAL: 58-year-old female with history of right upper quadrant pain status post cholecystectomy. RADIONUCLIDE HEPATOBILIARY SCINTIGRAPHY COMPARISON: Gastric emptying examination dated 08/23/2024 FINDINGS: Following the intravenous administration of 5.5 mCi of 99m Tc Mebrofenin, hepatobiliary images reveal: 1. Relatively prompt and homogeneous radiopharmaceutical concentration is noted by a normal sized liver. No parenchymal defects are identified. 2. Gallbladder activity is not identified during 60 minutes of sequential imaging commensurate with known history of prior cholecystectomy. 3. Small intestinal tract is observed at 14-15 minutes post radiopharmaceutical administration. 4. Washout of the radiopharmaceutical by the hepatic parenchyma appears qualitatively normal. NM/Hepatobilliary Imaging IMPRESSION: 1. ABNORMAL 99m Tc Mebrofenin hepatobiliary imaging examination. A. Nonvisualization of the gallbladder is consistent with prior cholecystectomy. B. Further evaluation of this individual may be undertaken utilizing pre-examination CCK quantitative hepatobiliary scintigraphy to exclude the presence of post cholecystectomy syndrome-Sphincter of Oddi dysfunction. (Alfonso et al, J Nucl Med 33: 1216, 1992). Electronically Signed: Pavan Marquez DO at 23:45 EDT ,
== END | disposition home or self-care (01) ==
LOC: NM 09:44
PROVIDERS: PCP Family Medicine; Referring Provider Internal Medicine Gastroenterology; Visit Provider Internal Medicine Gastroenterology
DX: R14.0 Abdominal distension (gaseous) (principal)
CPT/HCPCS: 78226; A9537

== ENCOUNTER → 2025-01-24 | Outpatient (CLI) | payer OTHER, SELFPAY | END | disposition home or self-care (01) | LOC: LABSPEC 16:09 | PROVIDERS: PCP Family Medicine; Referring Provider Otolaryngology Otolaryngology/Facial Plastic Surgery; Visit Provider Otolaryngology Otolaryngology/Facial Plastic Surgery | DX: J34.0 Abscess, furuncle and carbuncle of nose (principal) | CPT/HCPCS: 87070; 87077; 87186; 87205 ==

== ENCOUNTER → 2025-02-14 | Outpatient (CLI) | payer OTHER, SELFPAY ==
--- NOTE | 2025-02-14 15:35 | CT_ITS ---
PROCEDURE: SINUS/FACIAL BONE REASON FOR EXAM: CHRONIC SINUSITIS TECHNIQUE: CT of the paranasal sinuses without contrast. Coronal and Sagittal reconstruction series were provided. One or more dose reduction techniques were used (e.g., Automated exposure control, adjustment of the mA and/or kV according to patient size, use of iterative reconstruction technique). COMPARISON: None. FINDINGS: FRONTAL SINUSES: Normal aeration, without mucosal inflammatory disease. ETHMOIDAL SINUSES: Normal aeration, without mucosal inflammatory disease. MAXILLARY SINUSES: Normal aeration, without mucosal inflammatory disease. SPHENOIDAL SINUSES: Minimal chronic mucosal inflammatory changes of the left sphenoid sinus. There is patency of the bilateral maxillary infundibuli with normal uncinate processes, ethmoid bullae, and hiatus semilunaris. Normal bilateral middle turbinates. Normal bilateral inferior turbinates. Mild S-shaped nasal septum deviation. There is patency of the bilateral nasal airways. The visualized osseous structures are normal. The visualized bilateral orbital contents are normal. CT/Sinus/Facial Bone IMPRESSION: 1. Minimal chronic mucosal inflammatory thickening of the left sphenoid sinus. 2. No CT evidence of acute sinusitis. 3. Mild S shaped nasal septum deviation. Reading [facility]
== END | disposition home or self-care (01) ==
PROVIDERS: PCP Family Medicine; Referring Provider Otolaryngology Otolaryngology/Facial Plastic Surgery; Visit Provider Otolaryngology Otolaryngology/Facial Plastic Surgery
DX: J32.8 Other chronic sinusitis (principal)
CPT/HCPCS: 70486

== ENCOUNTER → 2025-07-17 | Outpatient (CLI) | payer OTHER, SELFPAY ==
[2025-07-17 10:57] LABS: Hematocrit 41.0 % (37-47); Hemoglobin 13.6 g/dL (12.0-15.0); Immature Granulocytes Count 0.050 X10^3/uL (0.0-0.0); Mean Corp Hgb Conc 33.2 g/dL (32-36); Mean Corpuscular Volume 99.0 fL (81-99); Mean Platelet Vol. 9.8 fl (6.2-12.0); NRBC Flagged by Analyzer 0 % (0-5); Platelet Count 258 K/mm3 (150-450); RBC Distribution Width CV 12.6 % (11.6-14.6); RBC Distribution Width SD 45.9 fl (35.1-43.9); Red Blood Count 4.14 M/mm3 (4.2-5.4); White Blood Count 9.8 K/mm3 (4.4-11.0)
[2025-07-17 11:40] LABS: AST(SGOT) 20 U/L (<=31); Alanine Aminotransfer ALT/SGPT 12 U/L (<=34); Albumin, Serum 4.1 g/dL (3.4-4.8); Alkaline Phosphatase 57 U/L (35-104); Anion Gap 9 (5-15); BUN 23 mg/dL (4-19); BUN/Creat Ratio 27.9 RATIO (10-20); Calcium,Total 9.1 mg/dL (7.6-11.0); Carbon Dioxide 23.3 mmol/L (21.0-32.0); Chloride 106 mmol/L (98-108); Globulin 2.7 g/dL (2.2-4.2); Glucose 92 mg/dL (70-99); Lipase 19 U/L (13-75); Potassium 4.5 mmol/L (3.3-5.1)
== END | disposition home or self-care (01) ==
PROVIDERS: PCP Family Medicine; Referring Provider Nurse Practitioner Acute Care; Visit Provider Nurse Practitioner Acute Care
DX: R10.13 Epigastric pain (principal); R11.0 Nausea
CPT/HCPCS: 36415; 80053; 83690; 85025

== ENCOUNTER → 2025-07-24 | Outpatient (CLI) | payer OTHER, SELFPAY ==
--- NOTE | 2025-07-24 08:47 | US_ITS ---
PROCEDURE: ABDOMEN LIMITED 07/24/2025 REASON FOR EXAM: EPIGASTRIC PAIN TECHNIQUE: Procedure Code: USABDL Modality: US Procedure: ABDOMEN LIMITED COMPARISON: None FINDINGS: Liver: Grossly normal size and echotexture. Gallbladder: Surgically absent. Common bile duct: Dilated measuring up to 7 mm. This is normal for the post cholecystectomy state. . Pancreas: Normal Other: Visualized portions of the right kidney are unremarkable. No right upper quadrant ascites. US/Abdomen Limited IMPRESSION: Status post cholecystectomy. No acute abnormality is seen. Reading Location: [place] [id number]
== END | disposition home or self-care (01) ==
PROVIDERS: PCP Family Medicine; Referring Provider Nurse Practitioner Acute Care; Visit Provider Nurse Practitioner Acute Care
DX: R10.13 Epigastric pain (principal); R11.0 Nausea
CPT/HCPCS: 76705